=== PATIENT | male | born 1960 | race Caucasian/White ===

== ENCOUNTER 2016-09-18 19:01 | Emergency (ER) | payer MEDICARE ==
[~2016-09-18] VITALS: Ht 182.9 cm; Wt 127.0 kg
[2016-09-18] MEDS ORDERED: CRESTOR20 MG PO (20:10)
[2016-09-18] MEDS ORDERED: FISH OIL1 GM PO (20:10)
[2016-09-18] MEDS ORDERED: ZONISAMIDE50 MG PO (20:11)
[2016-09-18] MEDS ORDERED: PRILOSEC40 MG PO (20:11)
[2016-09-18] MEDS ORDERED: TOPAMAX50 MG PO (20:11)
[2016-09-18] MEDS ORDERED: PERCOCET 325-51 TAB PO (20:13)
[2016-09-18] MEDS ORDERED: KEPPRA1000 MG PO (20:14)
[2016-09-18] MEDS ORDERED: LAMICTAL100 MG PO (20:15)
[2016-09-18] MEDS ORDERED: CELEXA40 MG PO (20:15)
[2016-09-18] MEDS ORDERED: NOVOLOG100 UNIT/2 SUBCUT (20:16)
[2016-09-18] MEDS ORDERED: LYRICA100 MG PO (22:29)
[2016-09-18] MEDS ORDERED: PRINIVIL10 MG PO (22:31)
[2016-09-18] MEDS ORDERED: VITAMIN D31000 UNI1 PO (22:32)
[2016-09-18] MEDS ORDERED: ZANAFLEX4 M1 PO (22:32)
[2016-09-18] MEDS ORDERED: HUMALOG MI100 UNIT/1 SUBCUT (22:33)
[2016-09-18] MEDS ORDERED: VENTOLIN HFA18 GM INH (22:34)
[2016-09-18] MEDS ORDERED: ADVAIR DIS14 PUFF/DI INH (22:34)
[2016-09-18] MEDS ORDERED: OXYCODONE HCL5 MG PO (22:36)
== END 2016-09-18 20:55 | disposition short-term general hospital (02) ==
LOC: ER 19:01
DX: G40.909 Epilepsy, unspecified, not intractable, without status epilepticus (principal); E86.0 Dehydration; K21.9 Gastro-esophageal reflux disease without esophagitis; E78.5 Hyperlipidemia, unspecified; F32.9 Major depressive disorder, single episode, unspecified; J44.9 Chronic obstructive pulmonary disease, unspecified; E11.40 Type 2 diabetes mellitus with diabetic neuropathy, unspecified; F17.200 Nicotine dependence, unspecified, uncomplicated
CPT/HCPCS: J1170; J2405

== ENCOUNTER 2016-10-26 15:07 | Emergency (ER) | payer SELFPAY ==
[~2016-10-26] VITALS: Ht 193 cm; Wt 127.0 kg
[~2016-10-26 15:07] MED LIST: ADVAIR DIS14 PUFF/DI INH; CELEXA40 MG PO; CRESTOR20 MG PO; FISH OIL1 GM PO; HUMALOG MI100 UNIT/1 SUBCUT; KEPPRA1000 MG PO; LAMICTAL100 MG PO; LYRICA100 MG PO; NOVOLOG100 UNIT/2 SUBCUT; OXYCODONE HCL5 MG PO; PERCOCET 325-51 TAB PO; PRILOSEC40 MG PO; PRINIVIL10 MG PO; TOPAMAX50 MG PO; VENTOLIN HFA18 GM INH; VITAMIN D31000 UNI1 PO; ZANAFLEX4 M1 PO; ZONISAMIDE50 MG PO
== END 2016-10-26 17:10 | disposition short-term general hospital (02) ==
LOC: ER 15:07
DX: R07.89 Other chest pain (principal); G40.909 Epilepsy, unspecified, not intractable, without status epilepticus; R06.00 Dyspnea, unspecified; E11.9 Type 2 diabetes mellitus without complications; F32.9 Major depressive disorder, single episode, unspecified; K21.9 Gastro-esophageal reflux disease without esophagitis; J44.9 Chronic obstructive pulmonary disease, unspecified; I10 Essential (primary) hypertension; E78.5 Hyperlipidemia, unspecified; Z86.73 Personal history of transient ischemic attack (TIA), and cerebral infarction without residual deficits; Z90.49 Acquired absence of other specified parts of digestive tract; Z98.890 Other specified postprocedural states